=== PATIENT | male | born 1995 | race African-American/Black ===

== ENCOUNTER 2021-04-17 15:55 | Emergency (ER) | payer SELFPAY ==
[~2021-04-17] VITALS: Ht 182.9 cm; Wt 79.2 kg
[2021-04-17 16:07] VITALS: BP 154/109
--- NOTE | 2021-04-17 16:12 | NUR ---
PT SUTURES REMOVED BY TECH.
--- NOTE | 2021-04-17 16:27 | NUR ---
PT REC'VD DISCHARGE INSTRUCTIONS AND EDUCATION. PT HAD NO FURTHER QUESTIONS. PT AMBULATED TO DC AREA, STEADY GAIT.
== END 2021-04-17 16:30 | disposition home or self-care (01) ==
LOC: ED 16:10
DX: S51.812D Laceration without foreign body of left forearm, subsequent encounter (principal); X58.XXXD Exposure to other specified factors, subsequent encounter
CPT/HCPCS: 99281